=== PATIENT | male | born 2000 | race American Indian/Alaskan Native ===

== ENCOUNTER 2021-10-21 14:12 | Emergency (ER) | payer SELFPAY ==
[2021-10-21 16:49] VITALS: BP 139/97
== END 2021-10-22 13:35 | disposition left against medical advice (07) ==
LOC: ED 14:12
DX: Z04.1 Encounter for examination and observation following transport accident (principal); Z53.21 Procedure and treatment not carried out due to patient leaving prior to being seen by health care provider; V87.7XXA Person injured in collision between other specified motor vehicles (traffic), initial encounter; Y93.89 Activity, other specified; Y92.488 Other paved roadways as the place of occurrence of the external cause; Y99.8 Other external cause status

== ENCOUNTER 2021-10-24 00:38 | Emergency (ER) | payer SELFPAY ==
[2021-10-24 01:17] VITALS: BP 121/75
== END 2021-10-24 05:30 | disposition left against medical advice (07) ==
LOC: ED 00:38
DX: M54.9 Dorsalgia, unspecified (principal); Z53.21 Procedure and treatment not carried out due to patient leaving prior to being seen by health care provider; V89.2XXA Person injured in unspecified motor-vehicle accident, traffic, initial encounter; Y93.89 Activity, other specified; Y92.89 Other specified places as the place of occurrence of the external cause; Y99.8 Other external cause status